=== PATIENT | female | born 1990 | race Hispanic/Latino ===

== ENCOUNTER 2016-06-13 21:28 | Inpatient (IN) | payer BC ==
[2016-06-13] MEDS ORDERED: SODIUM CHLORIDE 0.9% 1000ML 1,000 ML IVS PRN (21:42)
--- NOTE | 2016-06-13 22:34 | ED.PDOC ---
History of Present Illness - General Chief Complaint: Abdominal Pain Stated Complaint: abd. pain Time Seen by Provider: 06/13/16 21:36 Source: patient, RN notes reviewed Exam Limitations: no limitations - History of Present Illness Initial Comments: Jameson 25 y/o female with no chronic medical problem stated that 2 days ago she had burning ruq pain which had been constant when it started no relation to food intake no dysuria,no diarrhea no nausea/vomiting.Also stated pain radiates to right shoulder. Timing/Duration: other - 2 days Severity: moderate Improving Factors: nothing Worsening Factors: nothing Associated Symptoms: denies symptoms Allergies/Adverse Reactions: Allergies NO KNOWN ALLERGY Allergy (Verified 06/13/16 21:36) Home Medications: Ambulatory Orders Norethindrone (Contraceptive) [Qi] 0.35 mg PO QDAC #28 tab 02/10/14 Review of Systems - Review of Systems Constitutional: States: no symptoms reported EENTM: States: no symptoms reported Respiratory: States: no symptoms reported Cardiology: States: no symptoms reported Gastrointestinal/Abdominal: States: see HPI Genitourinary: States: no symptoms reported Musculoskeletal: States: no symptoms reported Skin: States: no symptoms reported Neurological: States: no symptoms reported Endocrine: States: no symptoms reported, intolerance to heat Past Medical History (General) - Patient Medical History Hx Seizures: No Hx Stroke: No Hx Dementia: No Hx Asthma: No Hx of COPD: No Hx Cardiac Disorders: No Hx Congestive Heart Failure: No Hx Pacemaker: No Hx Hypertension: No Hx Thyroid Disease: No Hx Diabetes: No Hx Gastroesophageal Reflux: No Hx Renal Disease: No Hx Cancer: No Hx of HIV: No Hx Hepatitis C: No Hx MRSA: No - Vaccination History Hx Tetanus, Diphtheria Vaccination: No Hx Influenza Vaccination: Yes Hx Pneumococcal Vaccination: No - Social History Hx Tobacco Use: No Hx Chewing Tobacco Use: No Hx Alcohol Use: No Hx Substance Use: No Hx Substance Use Treatment: No Hx Depression: No Hx Physical Abuse: No Hx Emotional Abuse: No Hx Suspected Abuse: No - Female History Hx Last Menstrual Period: 06/07/16 Patient : No Expected Date of Delivery:: 02/13/14 Family Medical History - Family History Father Paternal Family History: No Known Hx Family Hypertension: Yes Hx Family Diabetes: Yes Hx Family;Other: PATERNAL UNCLE HAD PROSTATE CANCER Sister Paternal Hx Family Asthma: Yes Mother Maternal Hx Family Diabetes: Yes Physical Exam - Physical Exam General Appearance: Alert, No apparent distress Eye Exam: bilateral normal Ears, Nose, Throat: hearing grossly normal, normal ENT inspection, normal pharynx Neck: non-tender, full range of motion, supple Respiratory: chest non-tender, lungs clear, normal breath sounds, no respiratory distress Cardiovascular/Chest: normal peripheral pulses, regular rate, rhythm, no edema, no gallop, no JVD Peripheral Pulses: radial,right: 2+, radial,left: 2+ Gastrointestinal/Abdominal: normal bowel sounds, tenderness - ruq no peritoneal signs Back Exam: normal inspection, no CVA tenderness, no vertebral tenderness Extremity: normal range of motion, non-tender, normal inspection Neurologic: no motor/sensory deficits, alert, normal mood/affect, oriented x 3 Skin Exam: normal color, warm/dry Lymphatic: no adenopathy Progress - EKG/XRAY/CT CT Ordered: Yes - abd/pelvis: acute cholecystitis /pericholecystic fluid Departure - Departure Clinical Impression: RUQ abdominal pain, Cholecystitis, acute Time of Disposition: 01:32 - D/W -surgeon and Fredo ANP-hospitalist Disposition: Admit Patient Condition: Good Departure Forms: ED Discharge - Pt. Copy, Patient Portal Self Enrollment Instructions: DI for Abdominal Pain-Adult Home Medications: Ambulatory Orders Norethindrone (Contraceptive) [Qi] 0.35 mg PO QDAC #28 tab 02/10/14
[2016-06-13] MEDS: SODIUM CHLORIDE 0.9% (FLUSH) 10 ML SYG IV PRN (22:43)
[2016-06-13] MEDS ORDERED: fentaNYL CITRATE INJ 50 MCG/ML AMP IV ONE (22:45)
[2016-06-13] MEDS ORDERED: PROMETHAZINE HCL INJ 25 MG/ML VIAL IM ONE (22:47)
[2016-06-14] MEDS ORDERED: fentaNYL CITRATE INJ 50 MCG/ML AMP IV ONE ×3 (01:00→13:08)
[2016-06-14] MEDS ORDERED: SODIUM CHLORIDE 0.9% (FLUSH) 10 ML SYG IV PRN ×2 (01:48→07:51)
[2016-06-14] MEDS ORDERED: KETOROLAC TROMETHAMINE INJ 30 MG/ML VIAL IV ONE (01:57)
[2016-06-14] MEDS ORDERED: IV SET AND CAP CHANGE INJ INJ SCH (02:00)
[2016-06-14] MEDS ORDERED: ONDANSETRON INJ 4 MG/2 ML VIAL IV PRN ×2 (02:00→18:09)
--- NOTE | 2016-06-14 02:06 | HP ---
SUPERVISING PHYSICIAN: Dick Quispe M.D. CHIEF COMPLAINT: Abdominal pain. HISTORY OF PRESENT ILLNESS: The patient is a 25 year-old female, healthy, that 2 days ago had pain in the right upper quadrant and right back. She does not relate it to food and has had no nausea or vomiting associated with it. She also states the pain goes to her right shoulder. She has no history of previous episodes of like illness. There is no history of hepatitis, jaundice, acholic stools or dark urine. She has had no fever or chills. PAST MEDICAL HISTORY: 1. Single with a healthy male child delivered by vaginal delivery. CURRENT MEDICATIONS: Takes no medications on a routine basis other than oral contraceptive agents. ALLERGIES: NO KNOWN DRUG ALLERGIES. FAMILY HISTORY: Positive for gallbladder disease. She is uncertain about any cancer, diabetes or heart disease. SOCIAL HISTORY: The patient is . She does not drink or smoke and has used no illegal drugs. REVIEW OF SYSTEMS: There has been no weight loss, loss of appetite, chest pain , shortness of breath, melenic stools, blood per rectum or bloody vomitus. There has been on urinary tract symptoms. PHYSICAL EXAMINATION: VITAL SIGNS: She is afebrile and normotensive. GENERAL: The patient is awake, alert and cooperative, and in mild to moderate distress. HEENT: Sclera are nonicteric. Mucous membranes are moist. NECK: Without adenopathy. BACK: There is no CVA tenderness. CHEST: Reveals equal breath sounds bilaterally. CARDIOVASCULAR: Regular rate and rhythm. ABDOMEN: Soft. There is tenderness in the right upper quadrant without mass or guarding. PELVIC AND RECTAL: Examinations are deferred. EXTREMITIES: Without clubbing, cyanosis or edema. LABORATORY: Sodium 140 this morning, potassium is up to 4.1 from 3.3 in the Emergency Room. Creatinine 0.53. Liver functions are within normal limits as they were last night. Serum HCG is negative. Amylase and lipase are both also normal this morning. Urinalysis reveals 3 to 5 white cells, 3 to 5 red cells, rare bacteria, negative leukocyte esterase, negative bilirubin, trace blood, specific gravity is 1.025. White count 7.5, hemoglobin 13.3, platelet count 157 ,000. She has 57% neutrophils. CT scan reveals thickening of the gallbladder wall with some pericholecystic fluid. No stones were identified. No ductal dilatation was identified. No other intraabdominal pathology was identified. ASSESSMENT: 1. Right upper quadrant pain. 2. CT scan consistent with cholecystitis but without stones and without leukocytosis. PLAN: Obtain an ultrasound. Keep her NPO. She has been started on antibiotics and we will continue these until a final diagnosis is made. #[id number] [facility]
[2016-06-14] MEDS ORDERED: SODIUM CHL 0.9% 50ML MIN-BAG+ 50 ML IVPB ONE ×2 (02:42→20:29)
[2016-06-14] MEDS ORDERED: cefTRIAXone SODIUM 1 GM VIAL ONE ×2 (02:43→20:29)
[2016-06-14] MEDS: KCL 20MEQ/0.45% NS 1,000 ML IVS PRN ×2 (02:47→09:59)
[2016-06-14] MEDS: SODIUM CHLORIDE 0.9% (FLUSH) 10 ML SYG IV PRN (02:48)
[2016-06-14] MEDS: cefTRIAXone SODIUM 1 GM in SODIUM CHL 0.9% 50ML MIN-BAG+ 50 ML IVPB SCH (02:49)
[2016-06-14] MEDS ORDERED: SODIUM CHLORIDE 0.9% 10 ML VIAL IV PRN (07:52)
--- NOTE | 2016-06-14 11:55 | US ---
NAME: ANDREA HERNANDEZ PROCEDURE: US GALLBLADDER ORDER DATE: 06/14/2016 8:00 AM PATIENT PORTAL REPRESENTATIVE ACCESSION NUMBER: [id number] Clinical History: Acute cholecystitis Indication: Same as above Comparison: CT of the abdomen and pelvis done on the same day . Technique: Fenton scale evaluation of the right upper quadrant of the abdomen was done ultrasonographically along with limited color Doppler evaluation Findings: The gallbladder wall is thickened and appears edematous. There is presence of multiple intraluminal gallstones, the largest calculus measuring 1.2 cm. These findings are suspicious for acute cholecystitis. The gallbladder wall thickness is 4.6 mm There is no ultrasonographically positive Shah's sign. The common duct is normal in transverse diameter and measures 4.9 mm. There is no intraductal common duct calculus. There are no focal liver lesions. There is no intrahepatic biliary dilatation. The pancreas is obscured by overlying bowel gas . Impression: The gallbladder wall is thickened and appears edematous. There is presence of multiple intraluminal gallstones, the largest calculus measuring 1.2 cm. These findings are suspicious for acute cholecystitis. There is no intrahepatic or extrahepatic biliary dilatation. Location of Interpretation: Teleradiology Electronically signed by: Cristian Crews MD 06/14/2016 11:55 AM PATIENT PORTAL REPRESENTATIVE
[2016-06-14] MEDS ORDERED: ROCURONIUM BROMIDE 10 MG/ML VIAL IV ONE (13:08)
[2016-06-14] MEDS ORDERED: LACTATED RINGERS 1,000 ML IV ONE (13:09)
[2016-06-14] MEDS ORDERED: LIDOCAINE 2 % GEL 5 ML TUBE TOP ONE (13:09)
[2016-06-14] MEDS ORDERED: METOCLOPRAMIDE HCL INJ 10 MG/2 ML VIAL IV ONE (14:00)
[2016-06-14] MEDS ORDERED: NEOSTIGMINE METHYLSULFATE 1 MG/ML ML IV ONE (14:00)
[2016-06-14] MEDS ORDERED: ATROPINE SULFATE 0.4 MG/ML 1ML VIAL IV ONE (14:00)
[2016-06-14] MEDS ORDERED: PROPOFOL 200 MG/20 ML VIAL IV ONE (14:00)
[2016-06-14] MEDS ORDERED: HEPARIN SODIUM (PORCINE) 10,000 UNITS/ML VIAL IRRIG ONE (16:30)
[2016-06-14] MEDS ORDERED: BUPIVACAINE 0.25% W/EPI 50 ML VIAL INJ ONE (16:30)
[2016-06-14] MEDS ORDERED: fentaNYL CITRATE INJ 50 MCG/ML AMP ONE (17:16)
[2016-06-14] MEDS ORDERED: HYDROmorphone HCL INJ 2 MG/ML VIAL IV PRN (18:09)
[2016-06-14] MEDS ORDERED: HYDROcodone 5MG/APAP 325MG 1 EA TAB PO PRN (18:09)
[2016-06-14] MEDS ORDERED: HYDROCOD/APAP 5/325 (ER DISP) #3 TAB PO ONE (19:00)
[2016-06-14] MEDS ORDERED: ONDANSETRON INJ 4 MG/2 ML VIAL IV ONE (19:40)
[2016-06-14] MEDS: LACTATED RINGERS 1,000 ML IVS PRN (21:44)
[2016-06-15] MEDS: LACTATED RINGERS 1,000 ML IVS PRN (01:14)
[2016-06-15] MEDS ORDERED: METOCLOPRAMIDE HCL INJ 10 MG/2 ML VIAL IV ONE (01:14)
[2016-06-15] MEDS ORDERED: MORPHINE SULFATE INJ 10 MG/ML VIAL IM PRN (01:16)
[2016-06-15] MEDS: cefTRIAXone SODIUM 1 GM in SODIUM CHL 0.9% 50ML MIN-BAG+ 50 ML IVPB SCH (02:56)
[2016-06-15] MEDS: MORPHINE SULFATE INJ 10 MG/ML VIAL IV PRN ×3 (06:40→10:55)
--- NOTE | 2016-06-15 10:00 | OP ---
DATE OF PROCEDURE: 06/14/16 PREOPERATIVE DIAGNOSIS: 1. Symptomatic cholelithiasis. POSTOPERATIVE DIAGNOSIS: 1. Symptomatic cholelithiasis. 2. Subacute cholecystitis. PROCEDURE: 1. Laparoscopic cholecystectomy with intraoperative cholangiography using fluoroscopy. SURGEON: Richard Castellano MD. RADIOLOGIC ELECTRONIC SPECIALIST: None. ANESTHESIA: Local infiltration of 0.25% Marcaine with epinephrine and general endotracheal anesthesia. INDICATION: The patient is a 25-year-old female who was in her usual state of health until a couple of days ago she began to have some back discomfort. Yesterday, she developed severe pain in the right upper quadrant which worsened. She came to the Emergency Room. CT was performed which revealed inflammatory changes about the gallbladder with a thickened wall with a small amount of pericholecystic fluid. She was admitted, made NPO and given IV Rocephin. She continues to have pain this morning and ultrasound reveals gallstones and a Shah sign. The patient was brought to the Surgical Suite today for cholecystectomy after the risks, benefits and alternatives to the procedure were discussed and accepted by the patient and her . FINDINGS: The gallbladder wall was thickened. There were multiple stones. The bile was semi-white bile. No other significant pathology was identified. There were no adhesions to the gallbladder. DESCRIPTION OF PROCEDURE: After adequate general endotracheal anesthesia was obtained, the patient was prepped and draped in the usual sterile manner. Surgical time-out was taken. The infraumbilical area was infiltrated with local anesthesia. A curvilinear incision was fashioned under the umbilicus. Dissection was carried down through the skin and subcutaneous tissue to the midline fascia. Traction sutures were placed on either side of the midline. A small incision was made in the midline fascia and the peritoneum was opened bluntly. Lacie trocar was introduced under direct vision into the abdominal cavity and fixed in place with the traction sutures. CO2 was then insufflated until a pressure of 12 mmHg was reached and the abdomen was tympanitic in all four quadrants. When this was done, the laparoscope was introduced. The abdomen was inspected with the previously noted findings. The patient was then placed in reverse Trendelenburg position, turned to the left side. The upper abdominal ports were placed under direct vision. The gallbladder was grasped, retracted anteriorly and laterally. The neck of the gallbladder was retracted laterally. The triangle of Calot was then explored. Initially, the cystic duct was identified. It was clipped proximally. A small incision was made in the cystic duct. The cholangiogram catheter was introduced and cholangiograms were then taken which revealed free flow into the duodenum with no filling defects or strictures noted. It was a very short cystic duct, the cystic duct catheter was removed. The cystic duct was hemoclipped four times distally and divided between the hemoclips. The cystic artery was divided, clipped proximally and distally time two and then divided. The gallbladder was then dissected free from the gallbladder bed of the liver. Another small arterial vessel was identified in the upper aspect of the gallbladder bed of the liver and this was clipped and controlled. When the gallbladder was dissected free from the gallbladder bed of the liver, it was placed in an EndoCatch bag and removed from the infraumbilical port site in the usual manner under direct vision. When this was done, the subhepatic space and subphrenic space were irrigated copiously with saline. The effluent was noted to be clear. The gallbladder bed of the liver was inspected and there was no significant bleeding identified. The dylan hepatis was inspected. There was no bleeding and no bile leak identified. The upper abdominal ports were removed under direct vision and good hemostasis was noted. At this point, the CO2, the laparoscope and the infraumbilical port were removed. The infraumbilical port site fascia was approximated with a single [id number] suture of 0 Vicryl. Subcutaneous tissue was irrigated with saline. Skin edges were approximated with 4-0 Vicryl subcuticular sutures, benzoin and Steri-Strips. Sterile dressings were applied. The patient was awakened and taken to the Recovery Room in good and stable condition. Estimated blood loss was approximately 25 mL. All sponge, needle and instrument counts were correct. #[id number] [facility]
--- NOTE | 2016-06-15 10:35 | DS ---
FINAL DIAGNOSIS: 1. Cholelithiasis. 2. Subacute cholecystitis, pending pathology report. SURGICAL PROCEDURE: Laparoscopic cholecystectomy with intraoperative cholangiography using fluoroscopy on 06/14/16. HISTORY OF PRESENT ILLNESS: The patient is a 25 year-old female, healthy, that 2 days ago had pain in the right upper quadrant and right back. She does not relate it to food and has had no nausea or vomiting associated with it. She also states the pain goes to her right shoulder. She has no history of previous episodes of like illness. There is no history of hepatitis, jaundice, acholic stools or dark urine. She has had no fever or chills. LABORATORY: The first postoperative morning, she had a normal white count. Hemoglobin was stable. Liver function tests were essentially normal, minimally changed. Pathology is pending. HOSPITAL COURSE: The patient was admitted through the Emergency Room to the Floor and started on IV antibiotics and kept NPO. Yesterday morning, an ultrasound was obtained showing gallstones. She was taken to the Operating Room after the risks, benefits and alternatives to the procedure were discussed and accepted. She underwent a laparoscopic cholecystectomy, which she tolerated relatively well. At first, she did not tolerate liquids because they had given her oral analgesic. She was switched from Dilaudid to morphine, which she tolerated, but still did not have perfect pain relief mainly at her umbilical incision, but then she tolerated liquids well. She was ambulating without significant difficulty and on the first postoperative morning, she was discharged home. CONDITION ON DISCHARGE: Improved. PROGNOSIS: Excellent pending pathology report. DISPOSITION: The patient is to followup in my office in 8 days. She was discharged on a low fat diet. She was told she can ambulate, but do not lifting or exercise, she can shower, but not tub bath, and she is to call me if she has any other problem, question, or difficulty. #[id number] [facility]
[2016-06-15 11:11] VITALS: BP 141/86; TEMP 98.5; O2SAT 98
--- NOTE | 2016-06-22 00:23 | CT ---
EXAM DESCRIPTION: CT Abdomen/Pelvis w/Contrast CLINICAL HISTORY: pain COMPARISON: None Available TECHNIQUE: Contiguous axial images of the abdomen and pelvis were obtained after the administration of intravenous contrast followed by reconstruction images. FINDINGS: There is gallbladder wall thickening versus pericholecystic fluid collection worrisome for acute cholecystitis. Correlation with a sonogram is recommended. The liver, spleen, pancreas and kidneys are within normal limits. There is no hydronephrosis or renal stones. Adrenal glands are within normal limits. Aorta is of normal caliber and tapering. There is no free fluid in the abdomen or pelvis. There is no bowel obstruction. The appendix is within normal limits. There is no pericecal inflammation. IMPRESSION: Findings worrisome for acute cholecystitis. Correlation with a sonogram is recommended for further evaluation. Electronically signed by: Sergei Dowling MD 06/14/2016 12:09 AM [employer]GER [employer]
--- NOTE | 2016-06-22 00:26 | US ---
NAME: ANDREA HERNANDEZ PROCEDURE: US GALLBLADDER ORDER DATE: 06/14/2016 8:00 AM PRODUCT INFO SPECIALIST ACCESSION NUMBER: [id number] Clinical History: Acute cholecystitis Indication: Same as above Comparison: CT of the abdomen and pelvis done on the same day . Technique: Fenton scale evaluation of the right upper quadrant of the abdomen was done ultrasonographically along with limited color Doppler evaluation Findings: The gallbladder wall is thickened and appears edematous. There is presence of multiple intraluminal gallstones, the largest calculus measuring 1.2 cm. These findings are suspicious for acute cholecystitis. The gallbladder wall thickness is 4.6 mm There is no ultrasonographically positive Shah's sign. The common duct is normal in transverse diameter and measures 4.9 mm. There is no intraductal common duct calculus. There are no focal liver lesions. There is no intrahepatic biliary dilatation. The pancreas is obscured by overlying bowel gas . Impression: The gallbladder wall is thickened and appears edematous. There is presence of multiple intraluminal gallstones, the largest calculus measuring 1.2 cm. These findings are suspicious for acute cholecystitis. There is no intrahepatic or extrahepatic biliary dilatation. Location of Interpretation: Teleradiology Electronically signed by: Cristian Crews MD 06/14/2016 11:55 AM PRODUCT INFO SPECIALIST
--- NOTE | 2016-06-22 00:26 | RAD ---
PROCEDURE: Chest,2 Views CLINICAL HISTORY: Acute Cholecystitis INDICATION: Same as above COMPARISON: None TECHNIQUE: PA and and lateral chest radiographs were obtained. FINDINGS: The lung riggins are well inflated. There are no discrete airspace infiltrates, pneumothoraces or pleural effusions. The pulmonary vascularity is normal The cardiomediastinal silhouette is unremarkable for patient's age and sex. IMPRESSION: There is no acute pleural-parenchymal process seen in the imaged lung riggins. Place of interpretation: Teleradiology. Electronically signed by: Cristian Crews MD 06/14/2016 11:41 AM CASE MAKING MACHINE OPERATOR
== END 2016-06-15 14:02 | disposition home or self-care (01) | DRG 419 ==
LOC: ER 21:28 → MS 06-14 02:05 → OBSVTOIN 06-14 02:05
PROVIDERS: ADMIT Nurse Practitioner Family; ATTEND Surgery
PROC: BW211ZZ Computerized Tomography (CT Scan) of Abdomen and Pelvis using Low Osmolar Contrast (ICD-10-PCS; 2016-06-13)
PROC: 0FT44ZZ Resection of Gallbladder, Percutaneous Endoscopic Approach (ICD-10-PCS; principal; 2016-06-14 15:30)
DX: K80.00 Calculus of gallbladder with acute cholecystitis without obstruction (principal); Z79.3 Long term (current) use of hormonal contraceptives

== ENCOUNTER 2016-08-13 15:39 | Emergency (ER) | payer BC ==
[2016-08-13 15:56] VITALS: BP 135/89; TEMP 99.4; O2SAT 99
[2016-08-13] MEDS ORDERED: LIDOCAINE 1% 10 ML VIAL INJ ONE (16:11)
--- NOTE | 2016-08-13 16:24 | RAD ---
EXAM DESCRIPTION: Hand,Right 3 Views CLINICAL HISTORY: fall pain lateral COMPARISON: None. TECHNIQUE: AP/lateral/oblique FINDINGS: The exam reveals an oblique fracture of the proximal aspect of the fifth metacarpal. There is slight palmar angulation of the distal fracture fragment. No further injury is detected. IMPRESSION: A fracture of the proximal aspect of the fifth metacarpal the right hand is demonstrated. Electronically signed by: Rodney Vergara MD 08/13/2016 4:23 PM CDT
--- NOTE | 2016-08-13 16:44 | ED.PDOC ---
History of Present Illness - General Chief Complaint: Upper Extremity Injury Stated Complaint: right hand pain and swelling Time Seen by Provider: 08/13/16 15:40 Source: patient Exam Limitations: no limitations - History of Present Illness Initial Comments: the patient is a 25-year-old female presenting to emergency room secondary to right hand pain. Patient tripped and fell at home over a toy. She landed on her right hand and has pain at the base of the fifth metacarpal.she is neurovascularly intact. There is mild shortening. Mild internal rotation. Occurred: just prior to arrival Pain - Upper Extremity: moderate: Hand, right Method of Injury: fell Improving Factors: immobilization Worsening Factors: movement Allergies/Adverse Reactions: Allergies NO KNOWN ALLERGY Allergy (Verified 08/13/16 15:56) Home Medications: Ambulatory Orders Hntocwjpkpqzh-Abjy-Hyboqfjfpf [Fioricet] 1 ea PO Q8H PRN #21 tab 08/13/16 Review of Systems - Review of Systems Constitutional: States: no symptoms reported EENTM: States: no symptoms reported Respiratory: States: no symptoms reported Cardiology: States: no symptoms reported Gastrointestinal/Abdominal: States: no symptoms reported Genitourinary: States: no symptoms reported Musculoskeletal: States: no symptoms reported Skin: States: no symptoms reported Neurological: States: no symptoms reported All other Systems: No Change from Baseline Past Medical History (General) - Patient Medical History Hx Seizures: No Hx Stroke: No Hx Dementia: No Hx Asthma: No Hx of COPD: No Hx Cardiac Disorders: No Hx Congestive Heart Failure: No Hx Pacemaker: No Hx Hypertension: No Hx Thyroid Disease: No Hx Diabetes: No Hx Gastroesophageal Reflux: No Hx Renal Disease: No Hx Cancer: No Hx of HIV: No Hx Hepatitis C: No Hx MRSA: No Surgical History: cholecystectomy - Vaccination History Hx Tetanus, Diphtheria Vaccination: No Hx Influenza Vaccination: No Hx Pneumococcal Vaccination: No - Social History Hx Tobacco Use: No Hx Chewing Tobacco Use: No Hx Alcohol Use: No Hx Substance Use: No Hx Substance Use Treatment: No Hx Depression: No Hx Physical Abuse: No Hx Emotional Abuse: No Hx Suspected Abuse: No - Activities of Daily Living Hospice Agency (if applicable):: None - Female History Patient is a Female of Child Bearing Age (10 -59 yrs old): Yes Hx Last Menstrual Period: 06/07/16 Patient : No Expected Date of Delivery:: 02/13/14 Family Medical History - Family History Father Paternal Family History: No Known Hx Family Hypertension: Yes Hx Family Diabetes: Yes Hx Family;Other: PATERNAL UNCLE HAD PROSTATE CANCER Sister Paternal Hx Family Asthma: Yes Mother Maternal Hx Family Diabetes: Yes Physical Exam - Physical Exam General Appearance: Alert, No apparent distress Eyes, Ears, Nose, Throat Exam: PERRL/EOMI Cardiovascular/Respiratory: regular rate, rhythm, normal peripheral pulses, normal breath sounds, no respiratory distress Back Exam: normal inspection Shoulder Exam: normal inspection, non-tender, no evidence of injury, normal ROM Elbow/Forearm Exam: normal inspection, non-tender, no evidence of injury, normal ROM Wrist Exam: normal inspection, non-tender, no evidence of injury, normal ROM Hand Exam: ecchymosis - see history of present illness. The patient is neurovascularly intact. Tendon function appears intact., swelling Neuro/Tendon: normal sensation, normal motor functions, normal tendon functions Mental Status: alert, oriented x 3 Comments: Vital Signs - 24 hr 08/13/16 15:52 Temperature 99.4 F Pulse Rate [ 118 H pulse ox] Respiratory 20 Rate Blood Pressure 135/89 [left arm] O2 Sat by Pulse 99 Oximetry Progress - Progress Progress: 08/13/16 16:44 the patient is a 25-year-old female presenting to emergency room with a right fifth metacarpal fracture. A hematoma block was placed after the procedure was explained with 9 cc of 1% Xylocaine without epinephrine. After the block was adequate reduction was performed manually. An ulnar gutter splint was placed. Repeat x-ray was performed after the reduction to confirm no further displacement of the fracture site. The patient is written for Fioricet for as needed use. Ibuprofen can additionally be used. She needs to follow up with her primary care doctor in 1-2 weeks for a repeat x-ray to confirm adequate healing and positioning. ER warnings were given. Departure - Departure Clinical Impression: Fracture, metacarpal Qualifiers: Encounter type: initial encounter Metacarpal bone: fifth Fracture type: closed Metacarpal location: shaft Fracture alignment: displaced Laterality: right Qualified Code(s): S62.326A - Displaced fracture of shaft of fifth metacarpal bone, right hand, initial encounter for closed fracture Disposition: Discharge to Home or Self Care Condition: Fair Departure Forms: ED Discharge - Pt. Copy, Patient Portal Self Enrollment Instructions: DI for Boxer's Fracture Diet: regular diet Activity: no pushing/pulling with affected limb Prescriptions: Hshlauzboqgob-Wepg-Gboulhhnuo [Fioricet] 1 ea PO Q8H PRN #21 tab PRN Reason: Pain Home Medications: Ambulatory Orders Qlmqyiymbdvys-Phjt-Oacjamfdkq [Fioricet] 1 ea PO Q8H PRN #21 tab 08/13/16 Additional Instructions: the patient is a 25-year-old female presenting to emergency room with a right fifth metacarpal fracture. A hematoma block was placed after the procedure was explained with 9 cc of 1% Xylocaine without epinephrine. After the block was adequate reduction was performed manually. An ulnar gutter splint was placed. Repeat x-ray was performed after the reduction to confirm no further displacement of the fracture site. The patient is written for Fioricet for as needed use. Ibuprofen can additionally be used. She needs to follow up with her primary care doctor in 1-2 weeks for a repeat x-ray to confirm adequate healing and positioning. ER warnings were given.
--- NOTE | 2016-08-13 17:11 | RAD ---
EXAM DESCRIPTION: Hand, right 2 Views CLINICAL HISTORY: 25 years Female ,post splinting 5th meta COMPARISON: Comparison to the earlier study.. TECHNIQUE: Three views of the right hand. FINDINGS: Splint or cast is in place. There is a fracture at the base of the fifth metacarpal bone with mild dorsal displacement and palmar angulation of the distal shaft with respect to the more proximal shaft. No other fractures are identified. IMPRESSION: Fracture of the base of the fifth metacarpal bone with splint or cast in place. Electronically signed by: Nito Morin MD 08/13/2016 5:09 PM CDT
== END 2016-08-13 16:57 | disposition home or self-care (01) ==
LOC: ER 15:39
DX: S62.326A Displaced fracture of shaft of fifth metacarpal bone, right hand, initial encounter for closed fracture (principal); W18.09XA Striking against other object with subsequent fall, initial encounter; Y92.009 Unspecified place in unspecified non-institutional (private) residence as the place of occurrence of the external cause

== ENCOUNTER → 2016-09-28 | Outpatient (CLI) | payer BC | END | disposition home or self-care (01) | LOC: GMAJ 14:45 | PROVIDERS: ATTEND Family Medicine | DX: Z00.00 Encounter for general adult medical examination without abnormal findings (principal) ==

== ENCOUNTER → 2018-01-31 | Outpatient (CLI) | payer BC | LOC: GMAJ 14:44 | PROVIDERS: ATTEND Family Medicine | DX: F31.32 Bipolar disorder, current episode depressed, moderate (principal) ==